=== PATIENT | male | born 1965 | race American Indian/Alaskan Native ===

== ENCOUNTER 2016-11-04 23:38 | Observation (INO) | payer OTHER ==
--- NOTE | 2016-11-05 00:07 | ED PDOC ---
Arrival/HPI - General Chief Complaint: Shortness Of Breath Time Seen by Provider: 11/04/16 23:53 Historian: Patient - History of Present Illness Narrative History of Present Illness (Text): 11/05/16 23:53 Fred Warner is a 51 year old male, whose past medical history includes Acid Reflux, who presents to the emergency department complaining of shortness of breath with associated spontaneous intermittent upper epigastric / lower chest discomfort for 1.5 weeks. Patient notes that he has experienced some nausea and is more tired lately. Patient states that he took Gas X for his symptoms which brought no relief. Patient denies any vomiting, headache, dizziness, fever, leg swelling, or any other complaint at this time. Patient endorses that he is a current smoker. PMD: Dr. Silverman Time/Duration: < month Symptom Onset: Gradual Symptom Course: Unchanged Severity Level: Mild Activities at Onset: Light Context: Home Past Medical History - Provider Review Nursing Documentation Reviewed: Yes - Infectious Disease Hx of Infectious Diseases: None - Cardiac Hx Cardiac Disorders: Yes Other/Comment: heart murmur as a child - Gastrointestinal Hx Gastroesophageal Reflux: Yes (w/ esophagitis) - Psychiatric Hx Psychophysiologic Disorder: No Hx Anxiety: No Hx Bipolar Disorder: No Hx Depression: No Hx Emotional Abuse: No Hx Hallucinations: No Hx Panic Disorder: No Hx Post Traumatic Stress Disorder: No Hx Psychosis: No Hx Physical Abuse: No Hx Schizophrenia: No Hx Sexual Abuse: No Hx Substance Use: No (marijuana and coke 20-30 years ago) - Surgical History Hx Appendectomy: Yes Hx Orthopedic Surgery: Yes (rotator cuff, carpal tunnel, bilat foot) - Anesthesia Hx Anesthesia: Yes Hx Anesthesia Reactions: No Hx Malignant Hyperthermia: No - Suicidal Assessment Feels Threatened In Home Enviroment: No Family/Social History - Physician Review Nursing Documentation Reviewed: Yes Family/Social History: No Known Family HX Smoking Status: Current Some Days Smoker Hx Alcohol Use: Yes (2 beers per week, 1-2 scotch on weekends) Hx Substance Use: No (marijuana and coke 20-30 years ago) Allergies/Home Meds Allergies/Adverse Reactions: Allergies No Known Allergies Allergy (Verified 10/04/14 08:51) Home Medications: Home Meds Medication Instructions Recorded Confirmed No Known Home Med 11/04/16 11/04/16 Review of Systems - Physician Review All systems were reviewed & negative as marked: Yes - Review of Systems Constitutional: absent: Fatigue, Weight Change Eyes: absent: Vision Changes ENT: Other (Fatigue). absent: Hearing Changes Respiratory: SOB Cardiovascular: absent: Chest Pain Gastrointestinal: Nausea. absent: Abdominal Pain, Diarrhea, Vomiting ( ) Genitourinary Male: absent: Dysuria, Frequency Musculoskeletal: absent: Arthralgias, Back Pain Skin: absent: Rash, Pruritis Neurological: absent: Headache, Dizziness Endocrine: absent: Diaphoresis Hemo/Lymphatic: absent: Adenopathy Physical Exam Vital Signs Reviewed: Yes Vital Signs Temp Pulse Resp BP Pulse Ox 11/05/16 03:00 69 18 139/89 96 11/05/16 00:01 18 98 11/04/16 23:52 99 F 76 18 169/93 H 97 Temperature: Afebrile Blood Pressure: Hypertensive Pulse: Regular Respiratory Rate: Normal Appearance: Positive for: Well-Appearing, Non-Toxic, Comfortable Pain Distress: None Mental Status: Positive for: Alert and Oriented X 3 - Systems Exam Head: Present: Atraumatic, Normocephalic Pupils: Present: PERRL Conjunctiva: Present: Normal Mouth: Present: Moist Mucous Membranes Pharnyx: Present: Normal. No: ERYTHEMA, EXUDATE Neck: Present: Normal Range of Motion Respiratory/Chest: Present: Clear to Auscultation, Good Air Exchange. No: Respiratory Distress, Accessory Muscle Use Cardiovascular: Present: Regular Rate and Rhythm, Normal S1, S2. No: Murmurs Abdomen: Present: Normal Bowel Sounds. No: Tenderness, Distention, Peritoneal Signs Back: Present: Normal Inspection Upper Extremity: Present: Normal Inspection. No: Cyanosis, Edema Lower Extremity: Present: Normal Inspection. No: Edema Neurological: Present: GCS=15, CN II-XII Intact, Speech Normal Skin: Present: Warm, Dry, Normal Color. No: Rashes Psychiatric: Present: Alert, Oriented x 3, Normal Insight, Normal Concentration Medical Decision Making ED Course and Treatment: 11/05/16 23:54 Impression: 51 year old male complaining of shortness of breath with associated spontaneous intermittent upper epigastric and lower chest discomfort for 1.5 weeks. Differential Diagnosis included but are not limited to: ACS vs GERD/hiatal hernia vs PE Plan: -- EKG -- Chest X-ray -- Labs -- Protonix -- Reassess and disposition Prior Visits: Notes and results from previous visits were reviewed. Patient last seen in the ED on 10/04/14 for Diarrhea and blood in his stool that day. Patient was discharged home. Progress Notes: EKG: NSR @ 75 with PVC with 1/2 mm JOSE j-pt elevation at avL with inverted T wave in III and 1/2mm ST dep in avF; normal intervals, borderline left axis; no old ekg for comparison. 11/05/16 02:39 Initial labs are unremarkable; minimal improvement with protonix. Patient with abnormal EKG with multiple risk factors for ACS with cp and sob of unclear etiology - will need further observation on tele for cardiology consult; pmd is Dr. Silverman - spoke with Dr. Soliz who said to place on Dr. Armenta's service. Discussed with Dr. Armenta. - Lab Interpretations Lab Results: 11/05/16 00:05 11/05/16 00:05 Lab Results 11/05/16 00:05: Sodium 141, Potassium 4.0, Chloride 104, Carbon Dioxide 28, Anion Gap 13, BUN 23 H, Creatinine 1.1, Est GFR ( Amer) > 60, Est GFR ( Non-Af Amer) > 60, Random Glucose 93, Calcium 9.2, Magnesium 2.1, Total Bilirubin 0.3, AST 50, ALT 41, Alkaline Phosphatase 85, Lactate Dehydrogenase 494, Total Creatine Kinase 712 H, CK-MB (CK-2) 4.2 H, CK-MB (CK-2) % Cancelled, Troponin I < 0.01, NT-Pro-B Natriuret Pep < 11.1, Total Protein 8.0, Albumin 4.3 , Globulin 3.7, Albumin/Globulin Ratio 1.2, Lipase 108 11/05/16 00:05: PT 10.8, INR 1.00, APTT 27.6, D-Dimer, Quantitative 0.26 11/05/16 00:05: WBC 6.6, RBC 4.72, Hgb 13.7 L, Hct 40.8 L, MCV 86.4, MCH 29.0, MCHC 33.6, RDW 14.5, Plt Count 252, MPV 9.3, Gran % 39.9 L, Lymph % (Auto) 51.1 H, [place] % (Auto) 5.9, Eos % (Auto) 2.6, Baso % (Auto) 0.5, Gran # 2.63, Lymph # 3.4, [place] # 0.4, Eos # 0.2, Baso # 0.03 I have reviewed the lab results: Yes - RAD Interpretation Radiology Orders: 11/05/16 00:01 CHEST TWO VIEWS (PA/LAT) [RAD] Stat - Medication Orders Current Medication Orders: Discontinued Medications Pantoprazole Sodium (Protonix Inj) 40 mg IVP ONCE STA Stop: 11/05/16 00:03 Last Admin: 11/05/16 00:51 Dose: 40 mg IVP Administration Document 11/05/16 00:51 JOSE RAMON (Rec: 11/05/16 00:51 JOSE RAMON [id number]) Charges for Administration # of IVP Administrations 1 - Scribe Statement The provider has reviewed the documentation as recorded by the Scribe Amber Alvarenga Provider Scribe Attestation: All medical record entries made by the Scribe were at my direction and personally dictated by me. I have reviewed the chart and agree that the record accurately reflects my personal performance of the history, physical exam, medical decision making, and the department course for this patient. I have also personally directed, reviewed, and agree with the discharge instructions and disposition. Disposition/Present on Arrival - Present on Arrival Any Indicators Present on Arrival: No History of DVT/PE: No History of Uncontrolled Diabetes: No Urinary Catheter: No History of Decub. Ulcer: No History Surgical Site Infection Following: None - Disposition Have Diagnosis and Disposition been Completed?: Yes Diagnosis: Chest pain Disposition: HOSPITALIZED Disposition Time: :40 Patient Plan: Observation, Telemetry Condition: FAIR
[2016-11-05 00:32] LABS: BASO # 0.03 K/mm3 (0.0-2.0); BASO % 0.5 % (0.0-3.0); EOS # 0.2 (0.0-0.7); EOS % 2.6 % (1.5-5.0); GRAN # 2.63 (1.4-6.5); GRAN % 39.9 % (50.0-68.0); HEMATOCRIT 40.8 % (42.0-52.0); LYMPH # 3.4 (1.2-3.4); LYMPH % 51.1 % (22.0-35.0); MEAN CELL VOLUME 86.4 fl (80.0-105.0); MEAN CORPUSCULAR HGB CONC 33.6 g/dl (31.0-37.0); MEAN PLATELET VOLUME 9.3 fl (7.0-11.0); MONO # 0.4 (0.1-0.6); MONO % 5.9 % (1.0-6.0); RED CELL DISTRIBUTION WIDTH 14.5 % (11.5-14.5); WHITE BLOOD COUNT 6.6 10^3/ul (4.5-11.0)
[2016-11-05 00:35] LABS: ALB/GLOB RATIO 1.2 (1.1-1.8); ALKALINE PHOSPHATASE 85 U/L (38-126); ALT/SGPT 41 U/L (7-56); AST/SGOT 50 U/L (17-59); BILIRUBIN,TOTAL 0.3 mg/dL (0.2-1.3); BLOOD UREA NITROGEN 23 mg/dL (7-21); CALCIUM 9.2 mg/dL (8.4-10.5); CARBON DIOXIDE 28 mmol/L (21-33); CHLORIDE 104 mmol/L (98-107); GFR AFRICAN-AMERICAN > 60; GLUCOSE,RANDOM 93 mg/dL (70-110); LIPASE 108 U/L (23-300); MAGNESIUM 2.1 mg/dL (1.7-2.2); SODIUM 141 mmol/L (132-148)
[2016-11-05 00:38] LABS: PARTIAL THROMBOPLASTIN TIME 27.6 Seconds (23.7-30.8)
[2016-11-05 00:40] LABS: D DIMER 0.26 mg/L FEU (0-0.50)
[2016-11-05 00:49] LABS: TROPONIN I < 0.01 ng/mL
[2016-11-05 05:49] VITALS: BMI 31.4
[2016-11-05 05:51] VITALS: RESP 20
[2016-11-05 07:55] LABS: CHOLESTEROL 190 mg/dL (130-200)
[2016-11-05 08:05] LABS: TROPONIN I < 0.01 ng/mL
--- NOTE | 2016-11-05 08:26 | RAD ---
HISTORY: Shortness of breath COMPARISON: No prior. TECHNIQUE: Chest PA and lateral FINDINGS: LUNGS: The lungs are clear. PLEURA: No significant pleural effusion identified. No pneumothorax apparent. CARDIOVASCULAR: Normal. OSSEOUS STRUCTURES: No significant abnormalities. VISUALIZED UPPER ABDOMEN: Normal. OTHER FINDINGS: None. IMPRESSION: No active pulmonary disease.
--- NOTE | 2016-11-05 12:55 | HP ---
HISTORY OF PRESENT ILLNESS: The patient is a 51 years old; states he has been having shortness of breath with some chest discomfort going for few days, got worse last night, so he decided to come to emergency room. Denies any cough, congestion. No fever or chills; did not have any significant chest pain but has retrosternal discomfort. No history of diaphoresis. No history of radiation of this pain to the throat or the shoulders. He did not have any history of GA in the past. He does have history of gastroesophageal reflux disease and had endoscopy done few years ago. PAST MEDICAL HISTORY: Significant for hypertension. ALLERGIES: HE IS NOT ALLERGIC TO ANY MEDICATION. MEDICATION AT HOME: He cannot recall he is on any medication at home. SOCIAL HISTORY: He is , lives with his and currently smoke 2 to 3 cigarettes daily, but has been smoking for many, many years. REVIEW OF SYSTEMS: Significant for retrosternal discomfort, exertional shortness of breath. PHYSICAL EXAMINATION: GENERAL: He is awake and alert, communicative. VITAL SIGNS: He is afebrile, pulse 84, respiration 20, and blood pressure 142/78. LUNGS: Bilateral fair airflow. No rhonchi or crackle. HEART: S1 and S2 audible. ABDOMEN: Soft, obese, nontender. No rebound, no guarding. NEUROLOGIC: The patient is awake and alert, communicative. LABORATORY DATA: WBC is 6.6, hemoglobin 13.7, hematocrit 40.8, platelet of 52. PT 10.8, INR of 1.0. Chemistry; sodium 141, potassium 4.0, chloride 104, CO2 of 28, BUN 23, creatinine 1.1, and blood sugar of 193. CPK is 714. MB 4.2. Two sets of troponin is negative. Triglyceride 231. X-ray of chest is unremarkable. EKG is pending. ASSESSMENT: 1. Exertional dyspnea could be related to his smoking. 2. Hypertension. 3. Chest pain seems to be noncardiac versus gastroesophageal reflux disease. PLAN: We will follow up on his 3 sets of cardiac enzymes given PPI. Awaiting cardiology input. If he remains stable, he can be discharged later on today. Again have stress test done as an outpatient. Mahmoodah Perveen, MD
[2016-11-05] MEDS: Albuterol-Ipratrop 3 mg / 0.5 (3 ml) UD IH SCH ×2 (13:25→20:15)
--- NOTE | 2016-11-05 20:22 | CP.PCM.PN ---
Subjective - Date & Time of Evaluation Date of Evaluation: 11/05/16 Time of Evaluation: 20:20 - Subjective Subjective: S:Requested Zyrtec for allergies. Seen at bedside. Takes Zyrtec for allergies to dogs, cats, pollen,dust. Has no other complaints now. O: Last Vital Signs 3 Temp 97.7 F 11/05/16 12:00 Pulse 75 11/05/16 17:54 Resp 20 11/05/16 12:00 BP 142/92 H 11/05/16 12:00 Pulse Ox 96 11/05/16 03:00 Alert, not in distress. LUNGS: Normal breathing pattern. A:Allergies. P:Benadryl 25 mg PO stat. Objective - Vital Signs/Intake and Output Vital Signs (last 24 hours): Temp Pulse Resp BP Pulse Ox 97.7 F 75 20 142/92 H 96 11/05/16 12:00 11/05/16 17:54 11/05/16 12:00 11/05/16 12:00 11/05/16 03:00 - Medications Medications: Current Medications Albuterol/Ipratropium (Duoneb 3 Mg/0.5 Mg (3 Ml) Ud) 3 ml IH [id number] [facility] Last Admin: 11/05/16 13:25 Dose: 3 ml Pantoprazole Sodium (Protonix Ec Tab) 40 mg PO 0630 [facility] - Labs Labs: PT 10.8 Seconds (9.9-11.8) 11/05/16 00:05 INR 1.00 (0.93-1.08) 11/05/16 00:05 APTT 27.6 Seconds (23.7-30.8) 11/05/16 00:05
--- NOTE | 2016-11-06 00:04 | CON ---
DATE: 11/05/2016 REASON FOR CONSULTATION: Uncontrolled hypertension, chest pain. HISTORY OF PRESENT ILLNESS: A 51-year-old male known to Dr. Silverman for mild croup. Presenting to the emergency room early this morning with complaints of chest pain. He reports that he has been having left-sided chest pain for a week, it got really bad last night and hence he came to the emergency room. He denies any radiation. He denies any diaphoresis. He denies any palpitations. In the emergency room, he is found to have an elevated blood pressure of 169/93. He is currently being observed to rule out acute IA. PAST MEDICAL AND SURGICAL HISTORY: Hypertension and hyperlipidemia. FAMILY HISTORY: Hypertension. SOCIAL HISTORY: Smokes 2 to 3 cigarettes per day, no alcohol, no IV drug abuse. ALLERGIES: NO KNOWN DRUG ALLERGIES. MEDICATION AT HOME: Not known REVIEW OF SYSTEMS: All systems are reviewed, pertinent positives as mentioned in the history of presenting illness, rest unremarkable. PHYSICAL EXAMINATION GENERAL: Young male lying in bed, in no acute distress at this time. VITAL SIGNS: Temperature 142/92, heart rate 52, respiratory rate 20, temperature 97.7. HEENT: Normocephalic, atraumatic. NECK: Supple, no JVD. LUNGS: Bilateral equal air entry, no rales. CARDIAC: S1, S2, regular rate and rhythm, no murmur, no rub. ABDOMEN: Soft, nondistended, nontender, bowel sounds present. EXTREMITIES: No lower extremity edema. INTAKE AND OUTPUT: Not charted. LABORATORY DATA: Sodium 141, potassium 4.0, chloride 104, CO2 of 28, BUN 23, creatinine 1.1, glucose 93, calcium 9.2, phosphorous not checked, magnesium 2.1. CPK is 714, second set CPK is 634. Troponin is less than 0.01 x2. Triglyceride 231. WBC is 6.6, hemoglobin 13.7, hematocrit 40.8, platelet of 252. CURRENT MEDICATIONS: DuoNeb, Protonix. ASSESSMENT: 1. Retrosternal chest pain, ?gastritis/gastroesophageal reflux disease. 2. Uncontrolled hypertension, not on any antihypertensive as outpatient. PLAN: 1. Rule out IA by 3 sets of cardiac enzymes. 2. Agreed with PPI. 3. Monitor blood pressure, may need antihypertensive. Thank you for the courtesy of this consultation. We will follow this patient as outpatient. Nancy Soliz MD
--- NOTE | 2016-11-06 00:49 | CON ---
DATE: 11/05/2016 REQUESTING PHYSICIAN: Dr. Armenta. REASON FOR CONSULTATION: Dyspnea. HISTORY OF PRESENT ILLNESS: This is a 51-year-old man who reported he has a history of borderline hypertension. He presents to the emergency room complaining of dyspnea when supine. He is also had mild chest heaviness. He denies any exertional symptoms. He denies any prior cardiac history. He states that his symptoms have been ongoing for the past several weeks. They worsened over the past several days. He does have a history of hypertension but takes no medications. He is not diabetic. He reports that his blood sugars were normal. There is no family history of premature heart disease. He denies tobacco abuse. He smokes several cigarettes a day and drinks alcohol in the weekends. PAST MEDICAL HISTORY: Notable for the problems mentioned above. He reports he has a history of gastroesophageal reflux disease. He has undergone prior surgery for rotator cuff, podiatric surgery as well as a carpel tunnel surgery, prior appendectomy. MEDICATIONS AT HOME: None. ALLERGIES: NONE. SOCIAL HISTORY: As mentioned, he drinks several beers, probably only on the weekend as well as occasional scotch. FAMILY HISTORY: Mother recently from coronary artery disease in her 80s. There is no family history of premature heart disease. REVIEW OF SYSTEMS: A 10-point review of system is notable mainly for the problems mentioned above. 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 PHYSICAL EXAMINATION: GENERAL: He is a muscular, overweight, middle-age man. VITAL SIGNS: His blood pressure is 142/82, pulse of 70 in sinus, respirations are 14. He is afebrile. HEENT: Normocephalic and atraumatic. NECK: Supple. No JVD noted. CHEST: Clear to auscultation and percussion.. HEART: PMI displaced laterally. No pathologic murmur or gallops are audible. ABDOMEN: Soft, nontender. Normoactive bowel sounds. EXTREMITIES: No clubbing, cyanosis, or edema. SKIN: Warm and dry. PSYCHIATRIC: Normal mood and affect. NEUROLOGIC: Alert and oriented x3. No gross motor sensory deficits appreciable. DIAGNOSTIC DATA: White count is 6.6, hemoglobin and hematocrit 13.7 and 48.8 with a platelet count of 252,000. PT and PTT are normal. D-dimer is negative. Potassium was 4.0. BUN and creatinine are 23 and 1.1. Troponin is negative x2; however, his CK is 712 and 634. MB percent is negative. Cholesterol was 190 with an HDL 32, LDL 99, and triglycerides 231. Electrocardiogram reveals sinus rhythm with PVCs, voltage criteria for LVH, nonspecific ST-T abnormalities. Chest x-ray reveals normal cardiac silhouette with some increased interstitial markings, intra-articular nodular pattern. IMPRESSION: 1. Orthopnea with some vague chest discomfort, etiology uncertain. 2. Hypertension with suboptimal control. RECOMMENDATIONS: At this time, an echocardiogram will be obtained to assess left ventricular size and function. Antihypertensive therapy would appear appropriate at this time as well. A screening stress test should be arranged. If symptoms are not persist or easily explained, consideration would be given to a pulmonary evaluation. Thank you for this consultation. We will be happy to follow during this hospital course as needed. Matt Traore MD
--- NOTE | 2016-11-06 01:36 | CARD ---
APPROVED REPORT EKG Measurement Heart [id number] <Conclusion> Sinus rhythm with frequent premature ventricular complexes Minimal voltage criteria for LVH, may be normal variant Borderline ECG
[2016-11-06] MEDS: Albuterol-Ipratrop 3 mg / 0.5 (3 ml) UD IH SCH ×2 (03:00→07:37)
[2016-11-06 06:02] VITALS: PULSE 70
[2016-11-06 06:03] VITALS: BP 143/62; TEMP 98.6; O2SAT 97
[2016-11-06] MEDS ORDERED: Pantoprazole 40 mg EC Tab PO SCH (06:30)
--- NOTE | 2016-11-06 10:05 | PN ---
DATE: 11/06/2016 SUBJECTIVE: The patient is seen sitting in bed on telemetry. He is currently comfortable. He denies any dyspnea. He has had no recurrent chest pain. CURRENT MEDICATIONS: DuoNeb inhaler and Protonix. OBJECTIVE: GENERAL: He is an overweight middle-aged man. VITAL SIGNS: His blood pressure is 142/60 with a pulse of 70 in sinus, respirations are 14. NECK: No JVD. CHEST: Clear to auscultation and percussion. HEART: PMI in normal position as well as systolic murmur present at left sternal border. ABDOMEN: Soft, nontender. Normoactive bowel sounds. EXTREMITIES: No edema. DIAGNOSTIC DATA: No blood work pending from this morning. IMPRESSION: 1. Chest pain and orthopnea, etiology uncertain, may have some component of gastroesophageal reflux disease. 2. Cardiac risk factors given history of hypertension and tobacco abuse. RECOMMENDATIONS: From cardiac standpoint, he appears stable for discharge home at this time. An outpatient stress test and echocardiogram will be advised. Continued monitoring of his blood pressure advised and he will likely need antihypertensive therapy. Smoking abstinence was strongly encouraged. We will be happy to see as an outpatient as needed. Matt Traore MD
--- NOTE | 2016-11-07 02:29 | DS ---
HISTORY OF PRESENT ILLNESS: The patient is 51 years old, seen and examined sitting in chair, anxious to go home. No chest pain, no shortness of breath. No nausea, no vomiting, no diarrhea. Eating and tolerating. Seen by Dr. Matt Traore and a stress test done as outpatient. PHYSICAL EXAMINATION: VITAL SIGNS: He is afebrile, pulse 70, respiration 20, and blood pressure 143/62. LUNGS: Bilateral fair airflow. No rhonchi or crackles. HEART: S1 and S2, audible. ABDOMEN: Soft, nontender. No rebound, no regarding. NEUROLOGICAL: The patient is awake and alert, able to communicate, ambulatory. LABORATORY EXAM: His 2 sets of troponins are negative. EKG has no evidence of acute ischemia. ASSESSMENT: 1. Noncardiac chest pain. 2. Active smoker. 3. Probably asthmatic bronchitis. 4. Overweight. 5. Borderline hyperlipidemia. PLAN: The patient is scheduled to have stress test done as outpatient and then he will follow with his PMD. Noel Armenta MD
--- NOTE | 2016-11-08 07:12 | CARD ---
APPROVED REPORT EXAM: Two-dimensional and M-mode echocardiogram with Doppler and color Doppler. INDICATION 2D DIMENSIONS Left Atrium (2D)4.2 (1.6-4.0cm)IVSd1.3 (0.7-1.1cm) LVDd4.8 (3.9-5.9cm)PWd1.2 (0.7-1.1cm) LVDs3.5 (2.5-4.0cm)FS (%) 26.7 % LVEF (%)52.2 (>50%) M-Mode DIMENSIONS Left Atrium (MM)4.20 (2.5-4.0cm)Aortic Root2.90 (2.2-3.7cm) Aortic Cusp Exc.1.90 (1.5-2.0cm) Aortic Valve AoV Peak Cbvklagk547.0cm/[place] GR.9mmHg Mitral Valve MV E Fjkwoymz46.2cm/sMV A Jwjiqchc19.8cm/sE/A ratio1.1 TDI Lateral E' Peak V8.48cm/sMedial E' Peak V4.68cm/sE/Lateral E'7.3 E/Medial E'13.3 Tricuspid Valve TR Peak Irrwzipt660eb/sRAP [id number] Peak Gr.9mmHg [id number] LEFT VENTRICLE The left ventricle is normal size. There is mild concentric left ventricular hypertrophy. The left ventricular function is normal. The left ventricular ejection fraction is within the normal range. There is normal LV segmental wall motion. RIGHT VENTRICLE The right ventricle is normal size. The right ventricular systolic function is normal. ATRIA The left atrium is mildly dilated. The right atrium size is normal. The interatrial septum is intact with no evidence for an atrial septal defect. AORTIC VALVE The aortic valve is normal in structure. No aortic regurgitation is present. There is no aortic valvular stenosis. MITRAL VALVE The mitral valve is normal in structure. There is no mitral valve regurgitation noted. TRICUSPID VALVE The tricuspid valve is normal in structure. There is no tricuspid valve regurgitation noted. PULMONIC VALVE The pulmonary valve is normal in structure. GREAT VESSELS The aortic root is normal in size. The IVC is normal in size and collapses >50% with inspiration. PERICARDIAL EFFUSION There is no pleural effusion. There is no pericardial effusion. <Conclusion> Dilated LA. Normal LV size and systolic function. Mild concentric LVH. No valvular abnormalities noted.
== END 2016-11-06 11:03 | disposition home or self-care (01) ==
LOC: ED 23:38 → ERH 11-05 01:44 → 2RSO 11-05 03:35
PROVIDERS: ADMIT Internal Medicine; ATTEND Internal Medicine
DX: R07.89 Other chest pain (principal); F17.210 Nicotine dependence, cigarettes, uncomplicated; J45.909 Unspecified asthma, uncomplicated; E66.3 Overweight; E78.5 Hyperlipidemia, unspecified; I10 Essential (primary) hypertension; J05.0 Acute obstructive laryngitis [croup]; K21.9 Gastro-esophageal reflux disease without esophagitis; K29.70 Gastritis, unspecified, without bleeding; Z82.49 Family history of ischemic heart disease and other diseases of the circulatory system; Z90.49 Acquired absence of other specified parts of digestive tract; R06.01 Orthopnea; Z68.31 Body mass index [BMI] 31.0-31.9, adult
CPT/HCPCS: 71020; 80053; 80061; 82550; 82553; 82948; 83615; 83690; 83735; 83880; 84484; 85025; 85378; 85610; 85730; 93005; 93306; 94640; 94760; 96374; 99285; C9113; G0378

== ENCOUNTER 2018-04-01 15:00 | Observation (INO) | payer OTHER ==
[2018-04-01 15:09] VITALS: RESP 18; O2SAT 98
[2018-04-01 15:20] VITALS: BMI 33.2
[2018-04-01 16:09] LABS: BASO # 0.03 K/mm3 (0.0-2.0); BASO % 0.5 % (0.0-3.0); EOS # 0.1 (0.0-0.7); EOS % 1.2 % (1.5-5.0); HEMOGLOBIN 14.6 g/dL (14.0-18.0); LYMPH # 2.9 (1.2-3.4); LYMPH % 48.9 % (22.0-35.0); MEAN CELL VOLUME 86.2 fl (80.0-105.0); MEAN CORPUSCULAR HEMOGLOBIN 28.5 pg (25.0-35.0); MEAN PLATELET VOLUME 8.9 fl (7.0-11.0); MONO # 0.5 (0.1-0.6); RBC 5.13 10^6/uL (3.5-6.1); RED CELL DISTRIBUTION WIDTH 13.8 % (11.5-14.5); WHITE BLOOD COUNT 5.9 10^3/uL (4.5-11.0)
--- NOTE | 2018-04-01 16:15 | ED PDOC ---
Arrival/HPI - General Historian: Patient - History of Present Illness Narrative History of Present Illness (Text): 04/01/18 16:38 52M w/ a PMH of HTN initially presented to [facility] [place] for exertional angina. Patient reported that 2 weeks ago he has been feeling retrosternal/midsternal chest discomfort which was worked up by his PMD Dr. Silverman who noticed small irregularities in his EKG. Patient reported that this morning he was exercising in the gym when he noticed a midsternal CP which was worse w/ exertion. Patient reported associated SOB during event and denied any radiation into his L arm. Deniesany jaw claudication or JEREZ. Patient reported that quality of CP changes w/ breathing. Upon ROS patient's reports that he does wake up w/ PND and apnea at times. Patient was supposed to be on CPAP however has stopped. PMD: Herrera Harris Cardio: Juanito PMH: HTN, Sleep Apnea All: NKDA Social: 2-3 Cigarettes dialy quit 5 mo x40 years; denies illicit drug use Fam Hx: mother CAD, Siblings HTN/DM, Father DM <Gerson Luz - Last Filed: 04/01/18 17:28> <Vernon Bardales - Last Filed: 04/01/18 17:51> - General Chief Complaint: Chest Pain Time Seen by Provider: 04/01/18 15:45 Past Medical History - Provider Review Nursing Documentation Reviewed: Yes - Infectious Disease Hx of Infectious Diseases: None - Cardiac Hx Cardiac Disorders: Yes Other/Comment: heart murmur as a child - Musculoskeletal/Rheumatological Hx Falls: No - Gastrointestinal Other/Comment: acid reflux - Psychiatric Hx Psychophysiologic Disorder: No Hx Anxiety: No Hx Bipolar Disorder: No Hx Depression: No Hx Emotional Abuse: No Hx Hallucinations: No Hx Panic Disorder: No Hx Post Traumatic Stress Disorder: No Hx Psychosis: No Hx Physical Abuse: No Hx Schizophrenia: No Hx Sexual Abuse: No Hx Substance Use: No - Surgical History Hx Appendectomy: Yes (10 years mars) - Anesthesia Hx Anesthesia: Yes Hx Anesthesia Reactions: No Hx Malignant Hyperthermia: No - Suicidal Assessment Feels Threatened In Home Enviroment: No <Gerson Luz - Last Filed: 04/01/18 17:28> Family/Social History - Physician Review Nursing Documentation Reviewed: Yes Family/Social History: Diabetes, Hypertension, CAD/PR Smoking Status: Current Some Days Smoker Hx Alcohol Use: No Hx Substance Use: No <Gerson Luz - Last Filed: 04/01/18 17:28> Allergies/Home Meds <Gerson Luz - Last Filed: 04/01/18 17:28> <Vernon Bardales - Last Filed: 04/01/18 17:51> Allergies/Adverse Reactions: Allergies No Known Allergies Allergy (Verified 10/04/14 08:51) Home Medications: Home Meds Medication Instructions Recorded Confirmed Albuterol Sulfate [Proair Hfa] 2 puff IH QID PRN 11/06/16 11/06/16 Review of Systems - Review of Systems Constitutional: Normal Eyes: Normal ENT: Normal Respiratory: SOB. absent: Cough Cardiovascular: Chest Pain, Other (PND ). absent: Palpitations, JEREZ, Orthopnea Gastrointestinal: Normal Genitourinary Male: Normal Musculoskeletal: Normal Skin: Normal Neurological: Normal Endocrine: Normal Hemo/Lymphatic: Normal Psychiatric: Normal <Gerson Luz Last Filed: 04/01/18 17:28> Physical Exam Vital Signs Reviewed: Yes Vital Signs Temp Pulse Resp BP Pulse Ox 04/01/18 15:08 98.3 F 65 18 159/72 H 98 Temperature: Afebrile Blood Pressure: Hypertensive Pulse: Regular Respiratory Rate: Normal Appearance: Positive for: Well-Appearing, Non-Toxic, Comfortable Pain Distress: None Mental Status: Positive for: Alert and Oriented X 3 - Systems Exam Head: Present: Atraumatic, Normocephalic Pupils: Present: PERRL Extroacular Muscles: Present: EOMI Conjunctiva: Present: Normal Mouth: Present: Moist Mucous Membranes Respiratory/Chest: Present: Clear to Auscultation, Good Air Exchange, Tender to Palpation. No: Respiratory Distress Cardiovascular: Present: Regular Rate and Rhythm, Normal S1, S2. No: Murmurs Abdomen: Present: Tenderness, Normal Bowel Sounds. No: Distention Upper Extremity: Present: Normal Inspection Lower Extremity: Present: Normal Inspection Neurological: Present: GCS=15, CN II-XII Intact Skin: Present: Warm, Dry Psychiatric: Present: Alert, Oriented x 3 <Gerson Luz - Last Filed: 04/01/18 17:28> Vital Signs Temp Pulse Resp BP Pulse Ox 04/01/18 15:08 98.3 F 65 18 159/72 H 98 <Vernon Bardales - Last Filed: 04/01/18 17:51> Medical Decision Making ED Course and Treatment: 04/01/18 16:57 Patient w/ nonspecific chest pain symptoms w/ risk factors seen and eval at [facility] for ACS r/o. Patient was to be admitted to [facility] for eval/work up by his Field Service Analyst Dr. Solomon Patient is in no acute distress at time of evaluations; Preliminary report given EKG is NSR HR 65 no significant axis deviation; PVCs appreciated on EKG; NO ST/T wave changes appreciated. 04/01/18 17:25 Records from [facility] satellite ED faxed over: CXR wnl Troponin negative BMP wnl CBC wnl Loaded w/ ASA 325 prior to arrival to [facility] Case D/w Dr. Armenta who accepts patient for admission as chest pain ACS r/o - EKG Interpretation EKG Interpretation (Text): 04/01/18 17:07 EKG is NSR HR 65 no significant axis deviation; PVCs appreciated on EKG; NO ST/T wave changes appreciated. Interpreted by ED Physician: Yes Type: 12 lead EKG <Gerson Luz - Last Filed: 04/01/18 17:28> - Lab Interpretations Lab Results: Troponin I < 0.01 ng/mL 04/01/18 16:05 Total Bilirubin 0.5 mg/dL (0.2-1.3) 04/01/18 16:05 AST 37 U/L (17-59) 04/01/18 16:05 ALT 23 U/L (7-56) 04/01/18 16:05 Alkaline Phosphatase 78 U/L (38-126) 04/01/18 16:05 Total Protein 8.8 g/dL (5.8-8.3) H 04/01/18 16:05 Albumin 4.6 g/dL (3.0-4.8) 04/01/18 16:05 Globulin 4.2 gm/dL 04/01/18 16:05 Albumin/Globulin Ratio 1.1 (1.1-1.8) 04/01/18 16:05 <Vernon Bardales - Last Filed: 04/01/18 17:51> Disposition/Present on Arrival - Present on Arrival Any Indicators Present on Arrival: No History of DVT/PE: No History of Uncontrolled Diabetes: No Urinary Catheter: No History of Decub. Ulcer: No History Surgical Site Infection Following: None - Disposition Have Diagnosis and Disposition been Completed?: Yes Disposition Time: 17:28 Patient Plan: Observation <Gerson Luz - Last Filed: 04/01/18 17:28> <Vernon Bardales - Last Filed: 04/01/18 17:51> - Disposition Diagnosis: Chest pain Patient Problems: Current Active Problems Problem Status Onset Chest pain Acute Condition: STABLE
[2018-04-01 16:21] LABS: ALB/GLOB RATIO 1.1 (1.1-1.8); ALBUMIN 4.6 g/dL (3.0-4.8); ALT/SGPT 23 U/L (7-56); AST/SGOT 37 U/L (17-59); BLOOD UREA NITROGEN 14 mg/dL (7-21); CALCIUM 9.7 mg/dL (8.4-10.5); GFR NON-AFRICAN AMERICAN > 60
[2018-04-01 16:34] LABS: TROPONIN I < 0.01 ng/mL
[2018-04-01 20:42] LABS: HDL CHOLESTEROL 36 mg/dL (29-60)
[2018-04-01 20:54] LABS: LDL CHOLESTEROL 89 mg/dL (0-129)
[2018-04-01 20:55] LABS: TROPONIN I < 0.01 ng/mL
--- NOTE | 2018-04-01 22:04 | HP ---
DATE OF EXAM: 04/01/2018 HISTORY OF PRESENT ILLNESS: The patient is 52 years old, patient of Dr. Silverman, he went to see Dr. Silverman last week. He was having off and on chest discomfort. He did EKG, found some irregularity and nonspecific changes. He had similar episode two weeks ago he went to [facility] initial workup was done. The patient was discharged. Today, when he went to gym for exercise he developed midsternal discomfort that got worse while he was exercising. He had associated shortness of breath. No dizziness. No numbness. No headache. Occasional history of awakening up in the middle of night. The patient says he was prescribed CPAP machine but he is not very compliant with that. The patient denies any abdominal pain. No history of fever or chills. PAST MEDICAL HISTORY: Significant for hypertension and sleep apnea. He does have history of occasional asthma and shortness of breath. ALLERGIES: HE IS NOT ALLERGIC TO ANY MEDICATIONS. MEDICATIONS AT HOME: He occasionally use his nebulizer. SOCIAL HISTORY: He is , lives with his . Smoked couple of cigarettes a day. He used to be heavy smoker, but he quit many years ago. FAMILY HISTORY: Significant for mother recently passing away from coronary artery disease, and she was in her 80's. PHYSICAL EXAMINATION: GENERAL: He is awake, alert, and oriented, able to communicate. VITAL SIGNS: He is afebrile, pulse 65, respirations 18, and blood pressure 150/69. LUNGS: Bilateral fair airflow. No rhonchi or crackle. HEART: S1 and S2 audible. ABDOMEN: Soft and nontender. No rebound. No guarding. NEUROLOGIC: The patient is awake, alert, oriented, able to communicate. LABORATORY DATA: WBC 5.9, hemoglobin 14.6, hematocrit 44.2, and platelets 247. Chemistry; sodium 139, potassium 4.0, chloride 103, CO2 of 27, BUN 14, creatinine 1.0, and blood sugar 88. LFTs is within normal limits. CPK 492. Troponin 0.01. ASSESSMENT: 1. Atypical chest pain, rule out underlying coronary ischemia. 2. Overweight. 3. Hypertension. 4. Mild concentric left ventricular hypertrophy by echocardiogram. PLAN: The patient will be placed on observation. We will follow up cardiac enzyme. Start him on aspirin, Lipitor, Protonix, metoprolol, and he will be followed by Dr. Solomon, or Dr. Traore, probably he need stress test versus cardia cath according to the recommendation. We will follow up the patient in a.m. Noel Armenta MD
[2018-04-01] MEDS: Metoprolol Succinate 25 mg XL Tab PO SCH (22:18)
[2018-04-02 05:29] VITALS: TEMP 98.6
[2018-04-02] MEDS ORDERED: Pantoprazole 40 mg EC Tab PO SCH (06:30)
[2018-04-02 07:20] LABS: FREE T4 0.76 ng/dL (0.78-2.19)
[2018-04-02] MEDS: Metoprolol Succinate 25 mg XL Tab PO SCH (08:18)
--- NOTE | 2018-04-02 08:51 | CARD ---
APPROVED REPORT Date of service: 04/01/2018 EKG Measurement Heart [id number] <Conclusion> Sinus rhythm with occasional premature ventricular complexes and fusion complexes Otherwise normal ECG
[2018-04-02 12:07] VITALS: BP 137/83
--- NOTE | 2018-04-02 12:32 | CON ---
DATE: 04/02/2018 REQUESTING PHYSICIAN: Dr. Armenta. REASON FOR CONSULTATION: Chest pain. HISTORY: This is a 52-year-old man known to us from prior admissions, who presented to the emergency room with complaints of chest discomfort. He has a history of hypertension and hyperlipidemia. He was seen several years ago with dyspnea and chest discomfort and outpatient stress test was unremarkable. Over the past several days, he has felt a heaviness on his chest. His pain is waxed and waned. He cannot identify any clear precipitating or relieving factors. He became concerned and presents to emergency room for evaluation. PAST MEDICAL HISTORY: His past history is notable for the problems mentioned above. He does have a history of gastroesophageal reflux as well as prior surgery for torn rotator cuff, carpal tunnel surgery, appendectomy and podiatric surgery. MEDICATIONS: His current medications include losartan 50 mg daily, Ecotrin, Lipitor 10 mg daily, Protonix, Toprol XL 25 mg daily. ALLERGIES: NONE. SOCIAL HISTORY: Drinks occasionally. Denies alcohol abuse. 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 FAMILY HISTORY: Mother from coronary artery disease in her 80s. REVIEW OF SYSTEMS: Ten-point review of systems is otherwise unremarkable. PHYSICAL EXAMINATION: GENERAL: He is a muscular middle aged man. VITAL SIGNS: His blood pressure is 124/82 with a pulse of 64, respirations are 14. He is afebrile. HEENT: Normocephalic and atraumatic. NECK: Supple. No JVD noted. CHEST: Clear to auscultation and percussion. HEART: PMI displaced laterally. No pathological murmurs or gallops noted. ABDOMEN: The abdomen is soft, nontender, normoactive bowel sounds. EXTREMITIES: No clubbing, cyanosis, or edema. SKIN: Warm and dry. PSYCHIATRIC: Normal mood and affect. NEUROLOGIC: Alert and oriented x3. No gross motor or sensory deficit noted. DIAGNOSTIC DATA: Electrogram reveals sinus rhythm with PVC and nonspecific ST-T abnormalities. Chest x-ray will be reviewed. White count is 5.9, hemoglobin and hematocrit 14.6 and 44.2 with a platelet count of 247,000. Potassium 4, BUN and creatinine 14 and 1. CK was 492 with MB fraction was -2. Troponins are negative. Cholesterol is 191, triglycerides of 399, LDL 89, and HDL 36. IMPRESSION: 1. Chest pain, that etiology uncertain. He is a middle-aged man with risk factors of hypertension, hyperlipidemia. 2. Hypertension. 3. Hyperlipidemia. RECOMMENDATIONS: Follow up third set of enzymes are pending. If this was negative, discharge home with an outpatient stress test can be arranged for next week. If he has any worsening symptoms, obviously more expeditious reevaluation would be advised. The need for continue risk factor control was discussed with him. Thank you for this consultation. Matt Traore MD JEANNINE
[2018-04-02 14:55] VITALS: PULSE 73
--- NOTE | 2018-04-02 23:46 | DS ---
HISTORY OF PRESENT ILLNESS: The patient is a 52-year-old who came to emergency room because of chest discomfort that has been happening especially when he goes to gym, it has been intermittently going on for 2 weeks. He went to see Dr. Silverman, who did echo and EKG, it was unremarkable. He states yesterday when he went to gym, he was having chest pressure and discomfort, so he decided to come to emergency room for further evaluation. PHYSICAL EXAMINATION: GENERAL: He is awake, alert, oriented, and communicative. VITAL SIGNS: He is afebrile, pulse 66, respirations 18, and blood pressure 137/83. LUNGS: Bilateral fair airflow. No rhonchi or crackle. HEART: S1 and S2 audible. ABDOMEN: Soft and nontender. No rebound. No guarding. NEUROLOGIC: He is awake, alert, oriented, and able to communicate. LABORATORY DATA: Hemoglobin A1c is 6.7. Three sets of troponin is negative. Free T4 is 0.76. ASSESSMENT: 1. Chest pain, etiology is still unclear, rule out underlying ischemia. 2. Hypertension. 3. Borderline hyperglycemia. 4. Concentric left ventricular hypertrophy. PLAN: The patient will be discharged home today. He is asymptomatic. Troponin is negative. He will follow up with Dr. Traore as outpatient to have stress test done as an outpatient and he was told in case chest pain comes back, he should immediately come back to emergency room. Noel Armenta MD
--- NOTE | 2018-04-03 04:14 | CON ---
DATE: 04/02/2018 REASON FOR CONSULTATION: Severe hypertension, chest pain, shortness of breath. HISTORY OF PRESENT ILLNESS: A 52-year-old male, known to me from outpatient followup. The patient presented to the emergency room yesterday with complaints of mid sternal chest pain, associated with shortness of breath/dyspnea on exertion for three days. The patient reports that the symptoms started on . He called his pets salesperson. The pets salesperson reassured him, but he came to the emergency room yesterday because his symptoms did not alesia and he was concerned. He denies any radiation of the pain. He denies any palpitations. Denies any diaphoresis. His vital signs, his pressure was extremely high when he came to the emergency room, his pressure was 154/106. His troponins were negative x2. The patient is currently in observation status. He was seen by Cardiology. PAST MEDICAL AND SURGICAL HISTORY: Hypertension, sleep apnea, GERD, torn rotator cuff, carpal tunnel surgery, appendectomy. FAMILY HISTORY: Hypertension. SOCIAL HISTORY: No smoking, no alcohol use, no IV drug abuse. ALLERGIES: NO KNOWN DRUG ALLERGIES. MEDICATIONS: Losartan 50 mg daily, aspirin, Lipitor 10 mg, Protonix, Toprol-XL 25. REVIEW OF SYSTEMS: All systems are reviewed, pertinent positives as mentioned in history of presenting illness, rest unremarkable. PHYSICAL EXAMINATION: GENERAL: Young male sitting in chair in no acute distress. VITAL SIGNS: Blood pressure 137/83, heart rate 66, respiratory rate 18, temperature 98.6. HEENT: Normocephalic, atraumatic, positive pallor. NECK: Supple, no JVD. LUNGS: Bilateral equal air entry, bilateral equal expansion, no rales. CARDIAC: S1, S2, regular rate and rhythm, no murmur, no rub. ABDOMEN: Obese, distended, soft, nontender, bowel sounds present. EXTREMITIES: No lower extremity edema. INTAKE AND OUTPUT: Not charted. LABORATORY DATA: WBC 5.9, hemoglobin 14.6, hematocrit 44, platelets 247. Sodium 139, potassium 4, chloride 103, CO2 of 27, BUN 14, creatinine 1, glucose 88, calcium 9.7, magnesium 2, AST 37, ALT 23, albumin 4.6, A1c 6.7. CURRENT MEDICATIONS: Losartan 50, Ecotrin 81, Lipitor 10, Protonix 40, Toprol-XL 25, Tylenol. ASSESSMENT: 1. Atypical chest pain. 2. Controlled hypertension. 3. Elevated A1c. 4. History of hyperlipidemia. PLAN: 1. [place] has estrellita ruled out by enzymes and EKG. 2. Stress test and echocardiogram. 3. Continue current antihypertensives. 4. Lifestyle modification for elevated A1c. Nancy Soliz MD
== END 2018-04-02 15:52 | disposition home or self-care (01) ==
LOC: ED 15:00 → ERH 17:10 → 2RNO 21:42
PROVIDERS: ADMIT Internal Medicine; ATTEND Internal Medicine
DX: R07.89 Other chest pain (principal); I11.9 Hypertensive heart disease without heart failure; I51.7 Cardiomegaly; R73.9 Hyperglycemia, unspecified; E78.5 Hyperlipidemia, unspecified; E66.3 Overweight; K21.9 Gastro-esophageal reflux disease without esophagitis; J45.909 Unspecified asthma, uncomplicated; G47.30 Sleep apnea, unspecified; Z83.3 Family history of diabetes mellitus; Z82.49 Family history of ischemic heart disease and other diseases of the circulatory system; Z87.891 Personal history of nicotine dependence
CPT/HCPCS: 36415; 80053; 80061; 82550; 82553; 83036; 83615; 83735; 84439; 84443; 84484; 85025; 93005; 99285; G0378